=== PATIENT | female | born 1990 | race Hispanic/Latino ===

== ENCOUNTER → 2017-12-01 | Outpatient (CLI) | payer OTHER ==
--- NOTE | 2017-12-01 12:51 | Diagnostic Imaging Report ---
PROCEDURE:ABDOMINAL ULTRASOUND COMPARISON:None. INDICATIONS:ABDOMEN PAIN TECHNIQUE: Llamas-scale and color sonographic images were obtained of the abdomen in transverse and sagittal planes. FINDINGS: Liver: Measures 13.2 cm in length in the right midclavicular line. Increased echogenicity. No masses. Main portal vein: Measures 0.9 cm with normal hepatopetal flow Gallbladder: No stones or wall thickening. Common Bile Duct: Measures 0.3 cm. Sonographic Doe's sign: Negative Right kidney: Measures 11.6 x 4.6 x 4.9 cm. No stones, hydronephrosis or mass. Left kidney: Measures 12.2 x 5.0 x 5.5 cm. No stones, hydronephrosis or mass. Spleen: Measures 9.4 x 3.2 x 3.9 cm. No mass. Pancreas: The visualized portions are unremarkable. Inferior vena cava: Patent Aorta: Within normal limits Ascites: None CONCLUSION: 1. Increased hepatic echogenicity without evidence of a mass. 2. Normal appearing gallbladder without stones or wall thickening. Anderson Bennett D.O. Dictated by: Anderson Bennett D.O. on 12/01/2017 at 12:58 Electronically approved by: Anderson Bennett D.O. on 12/01/2017 at 12:58
== END ==
LOC: US 07:37
PROVIDERS: ATTEND Internal Medicine Gastroenterology
DX: R10.9 Unspecified abdominal pain (principal)
CPT/HCPCS: 76700